=== PATIENT | female | born 1930 | race Two or more races ===

== ENCOUNTER 2017-08-20 12:58 | Outpatient (CLI) | payer OTHER ==
[~2017-08-20 12:58] MED LIST: ARICEPT10 MG PO; CALAN80 MG PO; COUMADIN1 MG PO; COZAAR50 MG PO; LIPITOR20 MG PO; NAMENDA10 MG PO; NITROFURANTOIN100 MG PO; WELLBUTRIN SR100 MG PO
== END 2017-08-20 14:52 | disposition home or self-care (01) ==
LOC: RAD 12:58
DX: M25.561 Pain in right knee (principal); M25.562 Pain in left knee; M25.571 Pain in right ankle and joints of right foot; M25.572 Pain in left ankle and joints of left foot

== ENCOUNTER 2018-01-12 20:41 | Inpatient (IN) | payer OTHER ==
[~2018-01-12] VITALS: Ht 165.1 cm; Wt 90.7 kg
== END 2018-01-21 11:34 | disposition expired | DRG 193 ==
LOC: ER 20:41 → SEC-K 01-13 07:44 → SURH 01-13 07:44 → MEDI 01-13 13:25 → SURH 01-13 13:25
PROC: 3E0F7GC Introduction of Other Therapeutic Substance into Respiratory Tract, Via Natural or Artificial Opening (ICD-10-PCS; principal; 2018-01-13)
PROC: 30233N1 Transfusion of Nonautologous Red Blood Cells into Peripheral Vein, Percutaneous Approach (ICD-10-PCS; 2018-01-13)
PROC: BW24ZZZ Computerized Tomography (CT Scan) of Chest and Abdomen (ICD-10-PCS; 2018-01-13)
PROC: 4A12X4Z Monitoring of Cardiac Electrical Activity, External Approach (ICD-10-PCS; 2018-01-13)
PROC: B246ZZZ Ultrasonography of Right and Left Heart (ICD-10-PCS; 2018-01-14)
PROC: 4A033R1 Measurement of Arterial Saturation, Peripheral, Percutaneous Approach (ICD-10-PCS; 2018-01-15)
PROC: 5A09457 Assistance with Respiratory Ventilation, 24-96 Consecutive Hours, Continuous Positive Airway Pressure (ICD-10-PCS; 2018-01-18)
PROC: 3E0336Z Introduction of Nutritional Substance into Peripheral Vein, Percutaneous Approach (ICD-10-PCS; 2018-01-20)
DX: J18.9 Pneumonia, unspecified organism (principal); I50.33 Acute on chronic diastolic (congestive) heart failure; J96.02 Acute respiratory failure with hypercapnia; J96.01 Acute respiratory failure with hypoxia; J44.1 Chronic obstructive pulmonary disease with (acute) exacerbation; N39.0 Urinary tract infection, site not specified; J45.41 Moderate persistent asthma with (acute) exacerbation; J98.11 Atelectasis; B37.49 Other urogenital candidiasis; D50.8 Other iron deficiency anemias; I35.1 Nonrheumatic aortic (valve) insufficiency; I34.0 Nonrheumatic mitral (valve) insufficiency; G30.8 Other Alzheimer's disease; F02.80 Dementia in other diseases classified elsewhere, unspecified severity, without behavioral disturbance, psychotic disturbance, mood disturbance, and anxiety; B96.1 Klebsiella pneumoniae [K. pneumoniae] as the cause of diseases classified elsewhere; I11.0 Hypertensive heart disease with heart failure; M19.041 Primary osteoarthritis, right hand; B95.2 Enterococcus as the cause of diseases classified elsewhere; Z66 Do not resuscitate